=== PATIENT | male | born 1950 | race Caucasian/White ===

== ENCOUNTER 2018-02-08 15:23 | Emergency (ER) | payer OTHER, MEDICAID ==
[2018-02-08 15:42] VITALS: RESP 18
--- NOTE | 2018-02-08 17:13 | EDPHY ---
H & P Time Seen by Provider: 02/08/18 15:55 HPI/ROS: CHIEF COMPLAINT: Laceration right thumb HISTORY OF PRESENT ILLNESS: 67-year-old male presents to the emergency department laceration to the right thumb. Patient was at home and cut his thumb on a floor grinder. The incident happened just prior to arrival. He is right- hand dominant. He believes his tetanus shot is current. ROS: Denies numbness or tingling in his fingers, retained foreign body, injury to the other fingers. Past Medical/Surgical History: COPD, hepatitis-C, alcoholism Social History: Single and lives in [place] Smoking Status: Former smoker Physical Exam: On examination the patient has a 1.5 cm laceration to the distal, palmar aspect of the right thumb. The laceration does not extend to the nail or into the D IP joint. The other fingers do not appear injured. No palpable bony tenderness. Normal sensation to light touch. Full range of motion of his right thumb. Constitutional: Initial Vital Signs Temperature (C) 36.5 C 02/08/18 15:39 Heart Rate 101 H 02/08/18 15:39 Respiratory Rate 18 02/08/18 15:39 Blood Pressure 167/90 H 02/08/18 15:39 O2 Sat (%) 94 02/08/18 15:39 O2 Delivery Mode Room Air Allergies/Adverse Reactions: No Known Allergies Allergy (Verified 05/21/16 12:43) Home Medications: Medication Instructions Recorded Sodium Chloride [Saline Nasal Mist] 126 ml EACHNARE PRN PRN 05/21/16 Triamcinolone Acetonide [Nasacort] 10.8 ml EACHNARE PRN PRN 05/21/16 Aspirin 81 mg PO DAILY #30 tablet 05/24/16 Furosemide [Lasix 40 MG (*)] 40 mg PO DAILY #30 tab 05/24/16 Lisinopril 2.5 mg PO DAILY #30 tablet 05/24/16 Metoprolol Succinate Xr [Toprol Xl 25 mg PO DAILY #30 tab.sr 05/24/16 25 mg (*)] Potassium Chloride [Klor-Con 10] 10 meq PO DAILY #30 tablet.sa 05/24/16 MDM/Departure - MDM Procedures: Laceration repair. Verbal consent was obtained from the patient. The 1.5 cm laceration on the right thumb was anesthetized using digital block using 1% lidocaine without epinephrine 0.5% bupivacaine without epinephrine. The wound was irrigated with saline, draped and explored to its base with a gloved finger. There were no deep structures involved. No tendon injury was identified. The wound was repaired with 4 0 Ethilon, 3 sutures. The wound repair was simple. The procedure was performed by myself. ED Course/Re-evaluation: 67-year-old male presents with right thumb laceration. The wound was repaired, see procedure note. Patient was given wound care precautions. His tetanus shot is current. - Depart Disposition: Home, Routine, Self-Care Clinical Impression: Laceration of right thumb Qualifiers: Encounter type: initial encounter Damage to nail status: without damage Foreign body presence: without foreign body Qualified Code(s): S61.011A - Laceration without foreign body of right thumb without damage to nail, initial encounter Condition: Good Instructions: Laceration (ED), Acute Wounds (ED) Additional Instructions: Wound Care Follow-Up: Removal of sutures in 10 days. Suture removal is complimentary in uncomplicated cases. Infection or abnormal findings would require reevaluation by the MD. In that case, you may be billed. Return if he notices any signs or symptoms of infection such as redness, swelling, increased pain, fever, purulent drainage. Referrals: Pauly Giordano DO [Primary Care Provider] - As per Instructions
[2018-02-08 17:39] VITALS: BP 159/98; PULSE 89; TEMP 98.4; O2SAT 97
== END 2018-02-08 17:45 | disposition home or self-care (01) ==
PROC: 0HQFXZZ Repair Right Hand Skin, External Approach (ICD-10-PCS; principal; 2018-02-08)
DX: S61.011A Laceration without foreign body of right thumb without damage to nail, initial encounter (principal); J44.9 Chronic obstructive pulmonary disease, unspecified; Z79.82 Long term (current) use of aspirin; Z87.891 Personal history of nicotine dependence; X15.8XXA Contact with other hot household appliances, initial encounter; Y92.009 Unspecified place in unspecified non-institutional (private) residence as the place of occurrence of the external cause

== ENCOUNTER 2018-11-18 16:22 | Emergency (ER) | payer OTHER, MEDICAID ==
[2018-11-18] MEDS ORDERED: ADENOSINE 6 MG/2 ML VIAL ONE ×2 (16:40→16:45)
[2018-11-18] MEDS ORDERED: PROPOFOL 200 MG/20 ML VIAL ONE (16:48)
--- NOTE | 2018-11-18 16:48 | EDPHY ---
H & P Time Seen by Provider: 11/18/18 16:40 HPI/ROS: CHIEF COMPLAINT: Palpitations HISTORY OF PRESENT ILLNESS: The patient is a 68-year-old man with history of COPD and CHF as well as hepatitis-C and alcohol abuse. He has been on a steroid taper for the last 2 weeks for COPD exacerbation. He states that his breathing has improved significantly however he has had increased edema in his legs. He denies chest tightness, pain or shortness of breath. He states that today his nose runny to so he took several squirts of Afrin nasal spray. Soon after that he developed palpitations. This is around 1:00 p.m.. He is in SVT at triage. He denies any history of cardiac arrhythmias. Severity: Moderate Modifying factors: None REVIEW OF SYSTEMS: Constitutional: denies: chills, fever, recent illness, recent injury EENTM: denies: blurred vision, double vision, nose congestion Respiratory: denies: cough, shortness of breath Cardiac: See HPI Gastrointestinal/Abdominal: denies: abdominal pain, diarrhea, nausea, vomiting, blood streaked stools Genitourinary: denies: dysuria, frequency, hematuria, pain Musculoskeletal: denies: joint pain, muscle pain Skin: denies: lesions, rash, jaundice, bruising Neurological: denies: headache, numbness, paresthesia, tingling, dizziness, weakness Hematologic/Lymphatic: denies: blood clots, easy bleeding, easy bruising Immunologic/allergic: denies: HIV/AIDS, transplant 10 systems reviewed and negative except as noted EXAM: GENERAL: Well-appearing, very talkative and in no acute distress. HEAD: Atraumatic, normocephalic. EYES: Pupils equal round and reactive to light, extraocular movements intact, sclera anicteric, conjunctiva are normal. ENT: TMs normal, nares patent, oropharynx clear without exudates. Moist mucous membranes. NECK: Normal range of motion, supple without lymphadenopathy or JVD. LUNGS: Breath sounds clear to auscultation bilaterally and equal. No wheezes rales or rhonchi. HEART: Tachycardic, Regular rate and rhythm without murmurs, rubs or gallops. ABDOMEN: Soft, nontender, normoactive bowel sounds. No guarding, no rebound. No masses appreciated. BACK: No CVA tenderness, no spinal tenderness, step-offs or deformities EXTREMITIES: Normal range of motion, 2+ pitting edema in lower extremities bilaterally. No clubbing or cyanosis. NEUROLOGICAL: Cranial nerves II through XII grossly intact. Normal speech, normal gait. 5/5 strength, normal movement in all extremities, normal sensation , normal reflexes PSYCH: Normal mood, normal affect. SKIN: Warm, dry, normal turgor, no visible rashes or lesions. Source: Patient Exam Limitations: No limitations - Personal History Tetanus Vaccine Date: 2014 - Medical/Surgical History Hx Asthma: No Hx Chronic Respiratory Disease: Yes Hx Diabetes: No Hx Cardiac Disease: No Hx Renal Disease: No Hx Cirrhosis: No Hx Alcoholism: Yes Hx HIV/AIDS: No Hx Splenectomy or Spleen Trauma: No Other PMH: copd, CHF, hepatitis C, ETOH history - Family History Significant Family History: No pertinent family hx - Social History Smoking Status: Former smoker Alcohol Use: Sober Drug Use: None Constitutional: Initial Vital Signs Heart Rate 181 H 11/18/18 16:54 Respiratory Rate 18 11/18/18 16:54 Blood Pressure 120/91 H 11/18/18 16:54 O2 Sat (%) 100 11/18/18 16:54 O2 Delivery Mode Nasal Cannula O2 (L/minute) 3 Allergies/Adverse Reactions: No Known Allergies Allergy (Verified 11/19/18 13:41) Home Medications: Medication Instructions Recorded Fluticasone Propionate [Flonase 1 spray EACHNARE DAILY PRN 11/18/18 Allergy Relief] Montelukast Sodium [Singulair 10 10 mg PO DAILY 11/18/18 mg (*)] Tamsulosin HCl [Flomax 0.4 MG (*)] 0.4 mg PO DAILY 11/18/18 Furosemide [Lasix 40 MG (*)] 60 mg PO DAILY 11/19/18 Losartan Potassium [Cozaar 25 mg 25 mg PO DAILY 11/19/18 (*)] predniSONE [Prednisone] 10 - 20 mg PO DAILY 11/19/18 Medical Decision Making - Diagnostics EKG Interpretation: An EKG obtained and was read and documented in trace view. Please see trace view for full reading and report. SVT rate of 176 A repeat EKG obtained and was read and documented in trace view. Please see trace view for full reading and report. Sinus rhythm with multiple PACs and PVCs, no acute ischemic changes A repeat EKG obtained and was read and documented in trace view. Please see trace view for full reading and report. Sinus rhythm, Imaging: Discussed imaging studies w/ call center support consultant Radiologist Procedures: Procedure: Procedural sedation. Indication: Cardioversion. A pre-sedation evaluation was completed on the patient just prior to the procedure. Patient is an appropriate candidate for procedural sedation with a normal 3-3-2 rule assessment and a Mallampati airway score of class to. The risks of the sedation were discussed including but not limited to dysrhythmia, need for airway intervention or general anesthesia, disability, ; and verbal consent obtained. A timeout was observed and patient's identity confirmed. The patient was sedated with propofol 60 mg. The patient was monitored with continuous pulse oximetry, capnography, and seismic observer. There were no complications and no significant hypoxemia. I remained at the bedside for the sedation. The total time I spent in the procedural sedation was 16 minutes. Procedure: Electrical cardioversion. The patient was electrically cardioverted for a intractable SVT. The patient was on a continuous aviation operations specialist, with airway equipment at the bedside. The patient was on continuous pulse oximetry. The cardioversion was attempted with 100 joules biphasic current. The cardioversion was successful. The patient tolerated the procedure well with no complications. The procedure was performed by myself. ED Course/Re-evaluation: The patient was 1st given adenosine at 6 than 12 than 18 mg doses. He did not respond. He is slightly hypoxic with good blood pressure. Decision was made to cardiovert with electricity. Patient was taken to room 1 and sedated with propofol cardioverted with 100 joules biphasic. He converted to sinus rhythm but continues to have multiple PVCs and PACs. I then gave him 10 mg of diltiazem. He is awake and recovered. Will continue to observe. Lab work being drawn. 5:50 p.m. the patient remains slightly tachycardic around 120. His blood pressure slightly low around 95 systolic. He states that he feels well. His BNP is elevated but his chest x-ray does not look significantly edematous. He does have edema in his ankles. I recommended admission for further treatment. Also he was difficult to cardiovert and required diltiazem. 6:00 p.m. Discussed the case with Dr. Sawyer who will admit. 6:40 p.m. the patient was evaluated by Dr. Sawyer. He is now refusing admission. He is borderline hypoxic and remains tachycardic and borderline hypotensive. We both spoke to him several times about being admitted he continues to refuse. He is signing out AMA for Dr. Sawyer. Differential Diagnosis: Partial list of the Differential diagnosis considered include but were not limited to; CHF exacerbation, SVT, atrial flutter, medication reaction and although unlikely based on the history and physical exam, I also considered acute coronary disease, PE, dissection. - Data Points Laboratory Results: Laboratory Results 11/18/18 16:37 11/18/18 16:37 Medications Given: Discontinued Medications Diltiazem HCl (Cardizem 25 Mg/5 Ml Vial) 10 mg IVP EDNOW ONE Stop: 11/18/18 17:00 Last Admin: 11/18/18 17:00 Dose: 10 mg Propofol (Diprivan) 60 mg IVP EDNOW ONE Stop: 11/18/18 17:00 Last Admin: 11/18/18 16:55 Dose: 60 mg Departure - Departure Disposition: Against Medical Advice Clinical Impression: SVT (supraventricular tachycardia), Edema of both lower extremities Hypotension Qualifiers: Hypotension type: unspecified hypotension type Qualified Code(s): I95.9 - Hypotension, unspecified Condition: Fair Referrals: Pauly Giordano DO [Primary Care Provider] - As per Instructions
[2018-11-18] MEDS ORDERED: PROPOFOL 200 MG/20 ML VIAL IVP ONE (16:59)
[2018-11-18] MEDS ORDERED: DILTIAZEM 25 MG/5 ML VIAL IVP ONE ×2 (16:59)
[2018-11-18 17:09] LABS: PLATELET COUNT 283 10^3/uL (150-400)
--- NOTE | 2018-11-18 17:10 | CPEKG ---
Test Reason : OPEN Blood Pressure : / mmHG Vent. Rate : 132 BPM Atrial Rate : 151 BPM P-R Int : 123 ms QRS Dur : 139 ms QT Int : 361 ms P-R-T Axes : 063 -30 088 degrees QTc Int : 535 ms Sinus tachycardia Multiform ventricular premature complexes Left bundle branch block Confirmed by Yuri Parson ([id number]) on 11/18/2018 5:09:24 PM Referred By: Confirmed By:Yuri Parson
--- NOTE | 2018-11-18 17:16 | CPEKG ---
Test Reason : OPEN Blood Pressure : / mmHG Vent. Rate : 176 BPM Atrial Rate : 175 BPM P-R Int : 032 ms QRS Dur : 090 ms QT Int : 327 ms P-R-T Axes : 000 -48 -65 degrees QTc Int : 560 ms Supraventricular tachycardia LAD, consider left anterior fascicular block Repolarization abnormality, prob rate related Confirmed by Yuri Parson ([id number]) on 11/18/2018 5:16:05 PM Referred By: Confirmed By:Yuri Parson
[2018-11-18 17:19] LABS: INR 1.02 (0.83-1.16); PROTIME(PATIENT) 13.6 SEC (12.0-15.0)
[2018-11-18] MEDS ORDERED: ONDANSETRON DISINTEGRATING 4 MG TAB PO PRN (18:07)
[2018-11-18] MEDS ORDERED: ONDANSETRON 4 MG/2 ML VIAL IVP PRN (18:07)
[2018-11-18] MEDS ORDERED: ACETAMINOPHEN 325 MG TAB PO PRN (18:07)
[2018-11-18 18:59] VITALS: BP 128/79
--- NOTE | 2018-11-18 19:22 | GHP ---
DATE OF ADMISSION: 11/18/2018 CHIEF COMPLAINT: Palpitations, SVT. PRIMARY SPRAY BOOTH OPERATOR: Dr. Akbar. HISTORY OF PRESENT ILLNESS: A 68-year-old male with COPD, prior systolic heart failure, presenting with palpitations. He has a monitor at home and says his heart rates were in the 170s. He has been suffering from upper respiratory symptoms, specifically runny nose, thus taking Flonase and multiple doses of Afrin today. He saw his supervisor gluing on 11/14/2018, and his Lasix was increased to 60 mg with a plan for an echocardiogram. He says he has been urinating a lot more than he was previously. Denies chest pain, shortness of breath, or dizziness. He is currently on a prednisone taper by his extension service specialist in charge, Dr. Guaman, now on 10 mg daily. He has been on prednisone for 2 weeks. He has noted increased swelling in his legs for the past 2 weeks, which he attributes to prednisone. In the ER, EKG demonstrated SVT, was dosed adenosine x3 and converted to normal sinus rhythm. During my interview, he remains tachycardic in the one-teens, stating he does not want to stay in the hospital. REVIEW OF SYSTEMS: I completed a 10-point review of systems, negative, except as noted in HPI. PAST MEDICAL HISTORY: 1. Prior systolic heart failure with EF of 10. Last echo, March 2017, with EF of 50%. Diastolic dysfunction. Mild MR. Cardiac cath, 05/26, mild CAD. 2. COPD. PAST SURGICAL HISTORY: Left foot surgery. SOCIAL HISTORY: Lives in [place]. 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 Smoked 20 years, half pack a day. Was a heavy drinker, quit a year and a half ago. Denies illicits. FAMILY HISTORY: Mother, healthy. Father with mesothelioma. MEDICATIONS: Singulair, prednisone 10 mg daily, Flomax, Kait, Flonase, Afrin , Lasix 60 mg daily. Was supposed to start losartan 25 mg daily, but was not filled. Aspirin 81 mg daily. NKDA PHYSICAL EXAMINATION: VITAL SIGNS: Temperature 36.5. Blood pressure is 120/91 , now 96 over 60s. Heart rate initially 180s, now one-teens after adenosine. Respiration rate 18, 93% on 3 L. GENERAL: He is disheveled, very anxious, restless in bed. HEENT: PERRLA. Mildly dry mucous membranes. CV: Tachy, regular, with occasional extra beat. +2 edema to the shins, right greater than left. Elevated JVD. LUNGS: Diminished breath sounds throughout, but no crackles or wheezes. ABDOMEN: Mildly distended, soft, nontender, nondistended. Positive bowel sounds. : No Amor. MUSCULOSKELETAL: 5/5 upper/lower extremity strength. SKIN: Erythematous rash with scabbed over lesions over dorsum of the bilateral feet. No cellulitic features. NEURO: 2 through 12 intact. PSYCH: Alert and oriented x3. Very pressured speech. Difficult to keep on point when questioning. LABS: WBC 12, hemoglobin 15, hematocrit 50, platelets 283. Coags within normal. Sodium 137, potassium 4.2, chloride 100, BUN 26, creatinine 1.3 ( baseline 1-1.2), glucose 163, calcium 8.7, total bilirubin 1.3, conjugated 0.5. BNP is 16,100 (last 618April 2017). Albumin is 4. Chest x-ray, hyperinflated. No overt effusion. EKG personally reviewed by me, SVT, heart rate in the 170s. Repeat at 1800, tachy, PVCs. ASSESSMENT/PLAN: 1. Supraventricular tachycardia: Suspect triggered with excessive Afrin use today. He was dosed adenosine 3 times with conversion to normal rhythm, in addition to diltiazem x1. He is still mildly tachycardic. Plan to monitor on telemetry. 2. Diastolic heart failure exacerbation: Previous history of ejection fraction of 10%. Last echo was 50% in March 2017. He saw Dr. Akbar, 11/14/2018, with a plan for repeat echocardiogram. At that time, Lasix was increased to 60 mg daily, and losartan was started. I recommend patient stay for echocardiogram , but he declined. 3. Chronic obstructive pulmonary disease. No evidence of exacerbation. He was advised not to use Afrin. DISPOSITION: Patient left against medical advice. I explained the risks, including arrhythmia, passing out, syncope, NIURKA, . He acknowledged these. /[id number]/MODL MTDD
[2018-11-19] MEDS ORDERED: ENOXAPARIN 40 MG/0.4 ML SYR SC SCH (09:00)
--- NOTE | 2018-11-21 10:01 | CPEKG ---
Test Reason : OPEN Blood Pressure : / mmHG Vent. Rate : 175 BPM Atrial Rate : 174 BPM P-R Int : 115 ms QRS Dur : 134 ms QT Int : 330 ms P-R-T Axes : -83 050 092 degrees QTc Int : 563 ms Probably sinus tachycardia Nonspecific intraventricular conduction delay Confirmed by Leroy Akbar ([id number]) on 11/21/2018 10:01:07 AM Referred By: Confirmed By:Leroy Akbar
--- NOTE | 2018-11-22 06:13 | CPEKG ---
Test Reason : OPEN Blood Pressure : / mmHG Vent. Rate : 116 BPM Atrial Rate : 115 BPM P-R Int : 133 ms QRS Dur : 092 ms QT Int : 329 ms P-R-T Axes : 082 -12 072 degrees QTc Int : 458 ms Sinus arrhythmia Multiform ventricular premature complexes Anteroseptal infarct, old Nonspecific T abnormalities, lateral leads Confirmed by Yuri Parson ([id number]) on 11/22/2018 6:13:05 AM Referred By: Confirmed By:Yuri Parson
== END 2018-11-18 18:57 | disposition left against medical advice (07) ==
LOC: UNDOADMOB 18:06
PROC: 5A2204Z Restoration of Cardiac Rhythm, Single (ICD-10-PCS; principal; 2018-11-18)
DX: I47.1 Supraventricular tachycardia (principal); I95.9 Hypotension, unspecified; J44.9 Chronic obstructive pulmonary disease, unspecified; I50.9 Heart failure, unspecified; R60.0 Localized edema
CPT/HCPCS: 71045; 92960; 93005; 96374; 96375; 99285; J0153; J2704; J1650

== ENCOUNTER 2018-11-19 13:39 | Inpatient (IN) | payer OTHER, MEDICAID ==
[2018-11-19] MEDS ORDERED: DILTIAZEM 125 MG in D5W 125 ML IV ONE (13:59)
[2018-11-19] MEDS ORDERED: DILTIAZEM 25 MG/5 ML VIAL IVP ONE ×2 (13:59→17:15)
[2018-11-19 14:02] LABS: PLATELET COUNT 260 10^3/uL (150-400)
[2018-11-19 14:10] LABS: INR 1.1 (0.83-1.16); PROTIME(PATIENT) 14.4 SEC (12.0-15.0)
[2018-11-19] MEDS ORDERED: FUROSEMIDE 40 MG/4 ML VIAL IVP ONE (14:11)
--- NOTE | 2018-11-19 14:30 | EDPHY ---
H & P Time Seen by Provider: 11/19/18 13:40 HPI/ROS: Chief complaint. Shortness of breath, palpitations HPI. 68-year-old male here by EMS with several day history of increasing shortness of breath and palpitations. Seen in the emergency department yesterday and the initial rhythm diagnosis was SVT. He was treated with 6, 12, 18 mg adenosine without effect. He was cardioverted with 100 joules and residual heart rate was about 120-130. Arrangements were made for admission and the patient signed out AMA. He returns today via ambulance with worsening symptoms. He has a history of COPD and CHF. He has had a recent steroid taper for COPD exacerbation. He has recently had increased Lasix for leg edema and shortness of breath for the past several weeks. He really does not have any chest discomfort today. ROS 10 systems were reviewed and negative with the exception of the elements mentioned in the history of present illness Past Medical/Surgical History: COPD, CHF, hepatitis C, alcoholism Social History: Single, nonsmoker, no alcohol Smoking Status: Former smoker Physical Exam: General Appearance: Alert well-developed male moderate to severe distress. Vital signs significant for afebrile. Heart rate 176. 88% sat on room air. Blood pressure 122/101 Eyes: Pupils equal and round no pallor or injection. ENT, Mouth: Mucous membranes are moist. Respiratory: Decreased breath sounds. Rales are present some wheezing present Cardiovascular: Regular rate and rhythm with tachycardia Gastrointestinal: Abdomen is distended likely secondary to ascites. No masses. Normal bowel sounds Neurological: Awake and alert, sensory and motor exams grossly normal. Skin: Warm and dry, no rashes. Musculoskeletal: Neck is supple nontender. Extremities 3+ edema to legs Psychiatric: Patient is oriented X 3, there is no agitation. Constitutional: Initial Vital Signs Temperature (C) 36.8 C 11/19/18 13:41 Heart Rate 176 H 11/19/18 13:41 Respiratory Rate 24 H 11/19/18 13:41 Blood Pressure 122/101 H 11/19/18 13:41 O2 Sat (%) 88 L 11/19/18 13:41 O2 Delivery Mode Nasal Cannula O2 (L/minute) 2 Allergies/Adverse Reactions: No Known Allergies Allergy (Verified 11/19/18 13:41) Home Medications: Medication Instructions Recorded Fluticasone Propionate [Flonase 1 spray EACHNARE DAILY PRN 11/18/18 Allergy Relief] Montelukast Sodium [Singulair 10 10 mg PO DAILY 11/18/18 mg (*)] Tamsulosin HCl [Flomax 0.4 MG (*)] 0.4 mg PO DAILY 11/18/18 Furosemide [Lasix 40 MG (*)] 60 mg PO DAILY 11/19/18 Losartan Potassium [Cozaar 25 mg 25 mg PO DAILY 11/19/18 (*)] predniSONE [Prednisone] 10 - 20 mg PO DAILY 11/19/18 Medical Decision Making - Diagnostics EKG Interpretation: EKG interpreted by shows atrial fib flutter the with normal axis. QRS is somewhat wide with QRS T1 48. No significant ST elevation or depression. Heart rate is 176 Imaging Results: Chest x-ray interpreted by me shows COPD, mild cardiomegaly, CHF Procedures: Old chart from yesterday is reviewed by me IV normal saline, oxygen, monitor Diltiazem bolus Lasix IV ED Course/Re-evaluation: I consulted discussed case with Dr. Smith for cardiology comes to see the patient in the emergency department. Dr. Castro david recommends no further diltiazem at this point but instead the using Lasix and amiodarone. Dr. Smith will write the order for amiodarone. Echocardiogram is ordered. Consulted discussed the case with Dr. Adams, hospitalist who will see the patient in the ED Patient and I have discussed laboratory and imaging study results. We discussed treatment plan including recommendation for admission. He expresses understanding and agreement Differential Diagnosis: Elevated troponin. Significantly elevated BNP. Likely very low ejection fraction. Cardiology feels the patient needs the fast heart rate currently to maintain cardiac output and recommends no significant cardiac to pressors at this point. no evidence for pneumonia Critical Care Time: Critical care time exclusive procedures 40 min - Data Points Laboratory Results: Laboratory Results 11/19/18 13:50 11/19/18 13:50 Medications Given: Discontinued Medications Albuterol/Ipratropium (Duoneb) 3 ml IH Q6HRS PRN PRN Reason: Short of Breath/Dyspnea Stop: 05/18/19 15:00 Last Admin: 11/19/18 15:06 Dose: 3 ml Diltiazem HCl (Cardizem 25 Mg/5 Ml Vial) 20 mg IVP EDNOW ONE Stop: 11/19/18 14:00 Last Admin: 11/19/18 14:04 Dose: 20 mg Diltiazem HCl (Cardizem 25 Mg/5 Ml Vial) 10 mg IVP ONCE ONE Stop: 11/19/18 17:16 Last Admin: 11/19/18 17:53 Dose: 10 mg Enoxaparin Sodium (Lovenox) 40 mg SC DAILY [facility] Stop: 05/18/19 17:44 Last Admin: 11/19/18 20:07 Dose: Not Given Famotidine (Pepcid) 20 mg PO BID ARAM Stop: 05/18/19 20:59 Last Admin: 11/19/18 21:14 Dose: Not Given Furosemide (Lasix Injection) 40 mg IVP EDNOW ONE Stop: 11/19/18 14:12 Last Admin: 11/19/18 14:14 Dose: 40 mg Furosemide (Lasix Injection) 60 mg IVP Q6HRS [facility] Stop: 05/18/19 17:59 Last Admin: 11/19/18 17:54 Dose: 60 mg Diltiazem HCl 125 mg/ Dextrose 125 mls @ 0 mls/hr IV EDNOW ONE; As Directed PRN Reason: Protocol Stop: 11/19/18 14:00 Last Admin: 11/19/18 14:11 Dose: Not Given Amiodarone HCl (Amiodarone Hcl) 100 mls @ 600 mls/hr IV ONCE ONE Stop: 11/19/18 14:44 Last Admin: 11/19/18 15:19 Dose: 100 mls Amiodarone HCl (Amiodarone Hcl) 200 mls @ 0 mls/hr IV EDNOW ONE; As Directed PRN Reason: Protocol Stop: 11/19/18 14:36 Last Admin: 11/19/18 15:30 Dose: 200 mls Azithromycin 500 mg/ Sodium (Chloride) 255 mls @ 255 mls/hr IV DAILY ARAM PRN Reason: Protocol Stop: 12/19/18 17:29 Last Admin: 11/19/18 17:48 Dose: 255 mls Epinephrine HCl 1 mg/ Dextrose 251 mls @ 0 mls/hr IV CONT ARAM; Per Protocol PRN Reason: Protocol Stop: 11/19/18 22:00 Last Admin: 11/19/18 20:51 Dose: 251 mls Epinephrine HCl 8 mg/ Sodium (Chloride) 258 mls @ 0 mls/hr IV CONT ARAM; Per Protocol PRN Reason: Protocol Stop: 05/18/19 21:29 Last Admin: 11/19/18 22:00 Dose: 258 mls Ipratropium [place] (Atrovent Neb) 0.5 mg IH Q6HRS [facility] Stop: 05/18/19 17:59 Last Admin: 11/19/18 20:07 Dose: Not Given Levalbuterol (Xopenex 0.63mg Neb) 1.25 mg IH Q6HRS [facility] Stop: 05/18/19 17:59 Last Admin: 11/19/18 20:07 Dose: Not Given Lorazepam (Ativan Injection) 1 mg IVP ONCE ONE Stop: 11/19/18 15:05 Last Admin: 11/19/18 15:05 Dose: 1 mg Lorazepam (Ativan Injection) 1 mg IVP ONCE ONE Stop: 11/19/18 18:16 Last Admin: 11/19/18 19:41 Dose: 1 mg Methylprednisolone Sodium Succinate (Solu-Medrol) 125 mg IVP Q8H [facility] Stop: 05/18/19 15:14 Last Admin: 11/19/18 15:13 Dose: 125 mg Methylprednisolone Sodium Succinate (Solu-Medrol) 125 mg IVP Q6H [facility] Stop: 05/18/19 20:59 Last Admin: 11/19/18 21:28 Dose: 125 mg Metolazone (Zaroxolyn) 2.5 mg PO DAILY [facility] Stop: 05/18/19 14:44 Last Admin: 11/19/18 16:32 Dose: 2.5 mg Metoprolol Tartrate (Lopressor Injection) 5 mg IVP ONCE ONE Stop: 11/19/18 17:03 Last Admin: 11/19/18 17:13 Dose: 5 mg Morphine Sulfate (Morphine) 1 mg IVP ONCE ONE Stop: 11/19/18 18:16 Last Admin: 11/19/18 17:55 Dose: 1 mg Point of Care Test Results: Chemistry 11/19/18 13:50 POC Troponin I 0.11 ng/mL H ng/mL (0.00-0.08) Departure - Departure Disposition: [facility] Clinical Impression: Edema of both lower extremities Atrial fibrillation Qualifiers: Atrial fibrillation type: unspecified Qualified Code(s): I48.91 - Unspecified atrial fibrillation Congestive heart failure Qualifiers: Heart failure type: unspecified Heart failure chronicity: unspecified Qualified Code(s): I50.9 - Heart failure, unspecified Ascites Qualifiers: Ascites type: other type Qualified Code(s): R18.8 - Other ascites Condition: Critical
[2018-11-19] MEDS ORDERED: AMIODARONE HCL 200 ML IV ONE (14:35)
[2018-11-19] MEDS ORDERED: AMIODARONE HCL 100 ML IV ONE (14:35)
[2018-11-19] MEDS ORDERED: METOLAZONE 2.5 MG TAB PO SCH (14:45)
[2018-11-19] MEDS ORDERED: IPRATROPIUM/ALBUTEROL 3 ML DEYVIAL ONE (14:57)
[2018-11-19] MEDS ORDERED: LORazepam 2 MG/ML INJ ONE ×2 (14:57→17:48)
[2018-11-19] MEDS ORDERED: IPRATROPIUM/ALBUTEROL 3 ML DEYVIAL IH PRN (15:01)
[2018-11-19] MEDS ORDERED: LORazepam 2 MG/ML INJ IVP ONE ×2 (15:04→18:15)
[2018-11-19] MEDS ORDERED: methylPREDNISolone SOD SUCC 125 MG/2 ML VIAL ONE (15:10)
[2018-11-19] MEDS ORDERED: methylPREDNISolone SOD SUCC 125 MG/2 ML VIAL IVP SCH ×2 (15:15→21:00)
[2018-11-19] MEDS ORDERED: ACETAMINOPHEN 325 MG TAB PO PRN (15:15)
[2018-11-19] MEDS ORDERED: AMIODARONE HCL 150 MG/100 ML BAG (1.5 MG/ML) IV ONE (15:18)
--- NOTE | 2018-11-19 15:55 | ECHO ---
[email or web address] [address] [address] Main: [phone] Fax: Transthoracic Echocardiogram Name: LEONARDO RIVERA MR#: [id number] Study Date: 11/19/2018 Study Time: 02:25 PM Date of : 1950 Age: 68 year(s) Height: 182.9 cm (72 in.) Weight: 86.18 kg (190 lb.) BSA: 2.08 m2 Gender: Male Examination: Echo Indication: Chest Pain Image Quality: Adequate Contrast: Requested by: Bartolome Larose BP: 94 mmHg/64 mmHg Heart Rate: Rhythm: Indication: Chest Pain Procedure Staff [place]: Chinyere Kebede RDCS Reading Physician: Jeremy Smith MD Requesting Provider: Conclusions: No pericardial effusion. Severely reduced LV systolic function. Ejection fraction estimated at 12%. Borderline reduction in RV systolic function. Biatrial enlargement. Moderate mitral regurgitation. Moderate to severe tricuspid regurgitation with right ventricular systolic pressure of 46 mm of mercury. Measurements: Chambers Valvular Assessment AV/MV Valvular Assessment TV/PV Normal Normal Normal Name Value Range Name Value Range Name Value Range Ao Melissa (2D): 3.9 cm (1.4 cm-2.6 AV Vmax: 0.62 m/s (1 m/s-1.7 TR Vmax: 3.22 mm/s ( - ) cm) m/s) TR PGmax: 41 mmHg ( - ) IVSd (2D): 1.2 cm (0.6 cm-1.1 AV maxP mmHg ( - ) syst. PAP: 46 mmHg ( - ) cm) AV meanP mmHg ( - ) LVDd (2D): 7.4 cm (4.2 cm-5.9 LVOT Vmax: 0.49 m/s (0.7 m/s-1.1 cm) m/s) LVDs (2D): 6.9 cm (2.1 cm-4 TANESHA (Vmax): 3.3 cm2 ( - ) cm) TANESHA (VTI): 2.9 cm ( - ) LVPWd (2D): 1.1 cm (0.6 cm-1 MV E Vmax: 0.68 m/s ( - ) cm) MV PHT: 0.042 s ( - ) LVOTd 2.3 cm 2.3 cm mm MVA (PHT): 5.2 s ( - ) LVEF (BP): 12 % (>=55 %) RVDd(2D): 2.6 cm (1.9 cm-3.8 cmmm) Continued Measurements: Chambers Valvular Assessment AV/MV Valvular Assessment TV/PV Name Value Name Value Name Value LADs: 4.2 cm MV DecTime: 148 m/s CVP (est.): 5 mmHg LADs Lon.9 cm MR ERO: 0.420 cm2 Patient: LEONARDO RIVERA Study Date: 11/19/2018 Page 1 of 2 02:25 PM LA Area: 25.5 cm2 MR PISA radius: 8 mm LA Volume: 95 ml MR Reg. Volume: 32 ml LA Volume Index: 45.7 ml/m2 RA Area: 18.9 cm2 Findings: Left Ventricle: Dilated left ventricle. Severely reduced systolic LV function. EF is 12 %. Global severe hypokinesis. Right Ventricle: Normal size right ventricle. Borderline RV function. Left Atrium: The left atrium is moderately dilated. Right Atrium: The right atrium is mildly dilated. Mitral Valve: The mitral valve is normal in appearance and function. Moderate mitral valve regurgitation is present. No mitral stenosis is present. Aortic Valve: The aortic valve is tri-leaflet. No aortic valve stenosis is present. Trivial aortic valve regurgitation. Tricuspid Valve: The tricuspid valve is normal in appearance and function. Moderate to severe tricuspid valve regurgitation. The pulmonary artery pressure is moderately increased. Right ventricular systolic pressure measures 46mmHg. Pulmonic Valve: Pulmonary valve not well visualized. Aorta: The aorta is normal. Normal size aortic root measuring 3.9 cm. IVC: The IVC is normal sized. Pericardium: No pericardial effusion. (No Signature Object) Patient: LEONARDO RIVERA Study Date: 11/19/2018 Page 2 of 2 02:25 PM [id number]
--- NOTE | 2018-11-19 16:48 | PDGENHP ---
History and Physical History and Physical: PCP - at [facility]. Market Research Senior Project Manager - Dr. Guaman in [place]. Chief complaint: Shortness of breath History of present illness: The patient is a 68-year-old male with history of COPD, CHF who return to the hospital today with increasing shortness of breath, fatigue, and racing heart. He left the hospital AMA yesterday shortly after he was cardioverted for atrial flutter in the ED. Here, he was found to be in atrial flutter with a heart rate of 170. Over the last month, he has developed a productive cough which has progressively worsened. He has also developed edema which has slowly been worsening. In the outpatient setting, he was put on a steroid taper for COPD exacerbation and his Lasix was increased. Shortness of breath is worse when he lies down. He is unable to answer additional questions because of his shortness of breath. Past medical history: COPD/emphysema, systolic and diastolic CHF, alcoholism, hepatitis-C, anxiety. Past surgical history: Left foot surgery. Medications: Allergies: No known allergies. Social history: Former smoker. Ten pack-year history. Former alcoholic. Denies drug use. Single, . Family history: Father-mesothelioma. Review of systems: unable to obtain because pt is very dyspneic. Physical exam: Vitals: Reviewed General: The patient is a male who is alert and in moderate acute distress. HEENT: normocephalic, extraocular movements intact, conjunctivae clear, no lesions on face. Nares and oral mucosa pink and moist. Neck: trachea midline, no visible masses, no external lesions. CV: rapid rate, no MRG. Resp: Labored breathing, tripod posture. Lungs CTAB w/ mild wheezing bilaterally, reduced breath sounds throughout. Abd: soft and mildly distended. Musculoskeletal: Normal muscle tone and bulk. Neuro: cranial nerves II - XII grossly intact. Intact gross motor and sensory function. Psych: irritable mood/appropriate affect. Skin: no pallor. +cyanosis/clubbing of digits of UE/LE. Labs: WBC 10, hemoglobin 15, platelets 260, INR 1.1, sodium 134, potassium 4.2 chloride 97 CO2 28 BUN 30 creatinine 1.2 glucose 176. AST 129 ALT 145. ProBNP 97878. Troponin I 0.11. TSH 1.67. Other Data: Chest [id number]-[id number] emphysematous and CHF changes. +mild edema. No acute cardiopulmonary process. Personally interpreted. Echocardiogram-LVEF 12%. Dilated left ventricle, left atrium. Borderline reduced RV systolic function. Biatrial enlargement. Moderate MR. Moderate to severe TR. RVSP 46. Impression and plan: Acute hypoxemic respiratory failure COPD exacerbation, severe Pulm HTN -Discussed with Pulm/CC. Pt on Vapotherm now, goal SpO2 88-90%. -If resp function declines, get ABG and consider placing on BiPap or intubating. -SoluMedrol. -Check resp panel, sputum Cx AFlutter CHF exacerbation - systolic and diastolic R sided heart failure, 2/2 COPD -Cardiology consulted in ED - put pt on Amiodarone for rate control. -Strict I/O, sodium restriction, Lasix. Electrolyte protocol. History of alcoholism -Pt denies drinking alcohol recently. Check ethanol level. -May start CIWA protocol if he develops EtOH withdrawal -Ativan prn agitation/anxiety. Hepatitis C Transaminitis -May have some congestive hepatopathy from R heart failure. -Continue to monitor. VTE ppx - Lovenox. Code status - full. Pt wants to be resuscitated and is ok with intubation/vent.
[2018-11-19] MEDS ORDERED: METOPROLOL TARTRATE 5 MG/5 ML INJ IVP ONE (17:02)
[2018-11-19] MEDS ORDERED: METOPROLOL TARTRATE 5 MG/5 ML INJ ONE (17:04)
[2018-11-19] MEDS ORDERED: DILTIAZEM 125 MG in D5W 125 ML IV SCH (17:15)
[2018-11-19] MEDS ORDERED: AZITHROMYCIN IV 500 MG in NS 250 ML IV SCH (17:30)
[2018-11-19] MEDS ORDERED: PROTOCOL K PHOSPHATE 1 DOSE IV PRN (17:38)
[2018-11-19] MEDS ORDERED: PROTOCOL MAGNESIUM 1 DOSE IV PRN (17:38)
[2018-11-19] MEDS ORDERED: PROTOCOL CALCIUM 1 DOSE IV PRN (17:38)
[2018-11-19] MEDS ORDERED: PROTOCOL POTASSIUM 1 DOSE MISC PRN (17:38)
[2018-11-19] MEDS ORDERED: ENOXAPARIN 40 MG/0.4 ML SYR SC SCH (17:45)
[2018-11-19] MEDS ORDERED: LORazepam 2 MG/ML INJ IVP PRN (17:47)
[2018-11-19] MEDS ORDERED: LEVALBUTEROL INHALER 200 PUFFS/15 GM MDI IH SCH (18:00)
[2018-11-19] MEDS ORDERED: LEVALBUTEROL 0.63 MG/3 ML DEYVIAL IH SCH ×2 (18:00)
[2018-11-19] MEDS ORDERED: IPRATROPIUM BROMIDE 0.5 MG/2.5 ML DEYVIAL IH SCH (18:00)
[2018-11-19] MEDS ORDERED: FUROSEMIDE 100 MG/10 ML VIAL IVP SCH (18:00)
[2018-11-19] MEDS ORDERED: DEXMEDETOMIDINE HCL 400 MCG in NS 100 ML IV SCH (18:30)
[2018-11-19] MEDS ORDERED: NA BICARBONATE 50 MEQ/50 ML VIAL ONE (18:54)
--- NOTE | 2018-11-19 19:00 | GCON ---
CARDIOLOGY CONSULTATION. DATE OF CONSULTATION: 11/19/2018 TIME: 2:30. REASON FOR CONSULTATION: Shortness of breath. HISTORY OF PRESENT ILLNESS: The patient is a 68-year-old male. He has known history of a dilated ca rdiomyopathy. At 1 point, his ejection fraction was 10%. He recovered to an EF of 50% and has not b een assessed in some time. He was seen on November 14 in our office. At that time, he had what was ap parently acute on chronic decompensation. His diuretics were increased. He has underlying COPD. He has been seen by technical support associate and given a steroid taper. He was seen yesterday in the emergency de partment with an SVT and decompensation. He was attempted to be rate controlled and then ultimately shocked into a sinus rhythm. He left against medical advice and returns today. On my arrival he can barely get a sentence out. He complains of significant shortness of breath, wheezing and cough. He denies palpitations, chest pain. He has had no PND, but has had significant peripheral edema. Prio r workup included a normal cardiac catheterization in 2016. At that time ejection fraction was 10% w ith mild CAD. Risks included alcohol which he has stopped. Underlying medical issues complicated by hepatitis C and longstanding alcohol abuse. He also has a history of "noncompliance." Other medical problems include hepatitis C. MEDICATIONS: As an outpatient included Flomax. He was on 60 mg twice daily of Lasix. He is on 10 m g of prednisone as part of a taper. He had self stopped his beta neelam. ALLERGIES: Dust. FAMILY HISTORY: Negative for premature coronary disease. SOCIAL HISTORY: Alcohol, which was previously heavy until 2016. No significant tobacco abuse. REVIEW OF SYSTEMS: GENERAL: Significant for fatigue, malaise, and weight gain. HEENT is negative for lightheadedness. CARDIAC: Exam includes severe dyspnea on exertion, lower extremity swelling. He has no palpitations, chest pain, or syncope. RESPIRATORY: Notable for shortness of breath, wheezing and cough. GI: Significant for distention without melena. MUSCULOSKELETAL: Reviewed. Negative for pain or swelling. He has no bleeding or bruising. PHYSICAL EXAMINATION: VITAL SIGNS: On my arrival, this is a very ill-appearing male. His current he art rate is 180. Blood pressure was 100/81. Oxygen saturation on 2 L was 94%. HEENT: No prominent JVP. CHEST: Significantly decreased breath sounds with expiratory and inspiratory wheezing. CARDIA C: Exam is significant for tachycardia. ABDOMEN: Significantly distended and tympanitic. I could no t appreciate a fluid wave. EXTREMITIES: 3+ edema to the knee. There is peripheral cyanosis. He is alert and oriented, responding appropriately. LABORATORY DATA: Significant for white count of 9.9. His hemoglobin is 15 with a hematocrit of 47. His current platelet count is 260,000. His serum sodium is 134, potassium 4.2, his chloride is 97, BUN is 30 with a creatinine 1.2. His AST is 129 with an ALT of 145. His initial troponin is 0.11. Glucose is 176. His EKG shows atrial flutter with a rapid ventricular response. Chest x-ray shows borderline cardiac size with no acute infiltrate. CONCLUSIONS: Acute respiratory failure, likely due to combination of chronic obstructive pulmonary d isease and acute systolic heart failure. His ejection fraction has been as low as 10% and has not be en reassessed. In the short term, recommend aggressive diuresis as he is clearly volume overloaded. We will plan for a stat echocardiogram for assessment of LV function. He was cardioverted yesterday which did not sustain him. Would like to use an antiarrhythmic drug, which has negative inotrope. We will plan for amiodarone 150 mg load with a slow drip. Close clinical followup of his liver funct ion tests in the setting of this medication. He will likely need afterload reduction as well as beta blockade. He clearly will need aggressive rate control and/rhythm strategy. At the present time he is critically ill. I would recommend that he be admitted to the intensive care unit. He needs aggr essive pulmonary toilet including potential steroid bolus, aggressive nebulizer therapy and potential ly respiratory support. Would consider blood gas to determine whether or not he is retaining CO2. Corry hardy will follow him along closely in the ICU. Thank you for allowing us to participate in his care. He has been under the care of our heart failur e service and will notify them of his admission. /[id number]/MODL
--- NOTE | 2018-11-19 19:05 | GCON ---
PULMONARY CRITICAL CARE CONSULTATION DATE OF CONSULTATION: 11/19/2018 REASON FOR CONSULTATION: COPD exacerbation, congestive heart failure. HISTORY: The patient is a 68-year-old gentleman with a history of COPD secondary to previous tobacco abuse and severe congestive heart failure. Cardiac echo shows an estimated left ventricular ejection fraction of 12%. Right ventricular systolic pressures were significantly elevated at 48. He was in the emergency department yesterday with SVT. He required cardioversion. He was scheduled to be admitted but signed out against medical advice. He came back today with increasing shortness of breath, hypoxemia, and lower extremity edema. Chest x-ray is consistent with COPD/emphysema. There are no acute infiltrates. He is complaining of cough and shortness of breath, but is unable to bring up any sputum. Heart rate in the emergency department is significantly elevated at approximately 175. He was seen by Cardiology and started on amiodarone. Blood pressures have been stable. He was given Lasix. He has urinated once for an unknown amount. DRUG ALLERGIES: No known drug allergies. PAST MEDICAL HISTORY: Remarkable for congestive heart failure associated with cardiomyopathy, pulmonary hypertension, secondary, cirrhosis with ascites, systemic hypertension, history of SVT and atrial fibrillation, history of previous tobacco abuse and alcohol abuse in the past. HOME MEDICATIONS: Prednisone which was being tapered, Lasix at 60 mg per day, Cozaar, Flomax, montelukast, and Flonase. Inhaled outpatient medications are not listed. SOCIAL HISTORY: He is , apparently lives alone. He drinks significant beer. He is no longer smoking, but is unclear when he quit tobacco. He does use marijuana. FAMILY HISTORY: Noncontributory. REVIEW OF SYSTEMS: Difficult to obtain at the moment secondary to dyspnea. He also has a history of hepatitis C. PHYSICAL EXAMINATION: GENERAL: Reveals a gentleman who is complaining of shortness of breath and appears to be in some respiratory distress. VITAL SIGNS : Blood pressure is 119/98, heart rate approximately 175 and regular, consistent with a supraventricular tachycardia. Respiratory rate is 25. On 6 L by OxyMask, saturations are 88%. He is afebrile. HEENT: Remarkable for dyspnea and use of accessory muscles, dry mucous membranes. He has a dry but somewhat centrally congested cough. CHEST: Reveals decreased breath sounds bilaterally with a prolonged expiratory phase with expiratory wheezes. No yamil rhonchi are present. There are no significant rales. HEART: Tachycardic. A summation gallop is likely present. ABDOMEN: Mildly distended , soft and not tender. Organomegaly cannot be appreciated. Bowel sounds are diminished but present. EXTREMITIES: Remarkable for 1+ edema. SKIN: Dry without significant rash or lesions. NEUROLOGIC: Examination is intact. He is restless secondary to his dyspnea and appropriately responsive. DATABASE: Chest x-ray is negative for infiltrates, consistent with COPD/ emphysema as noted above. White blood cell count is 9900, hematocrit 47, platelets 260,000. PT and PTT were normal on admission. Sodium is 134, potassium 4.2, BUN 30 with a creatinine of 1.2. Glucose is 176. Bilirubin is 0.8. AST and ALT are elevated at 129 and 145 respectively. BNP is 15,800. Troponin is 0.11. Magnesium is 2.2. Urinalysis is unremarkable. ASSESSMENT: 1. Chronic obstructive pulmonary disease exacerbation. This is likely associated with bronchitis, perhaps infectious. Bronchodilator therapy will be maintained with Xopenex and ipratropium bromide. Steroids will be given. Singulair can be continued. Azithromycin will be given intravenously. Oxygen will be used to maintain saturations approximately 88% to 92%. A blood gas will be done if he deteriorates or does not improve. 2. Cardiomyopathy with severe left ventricular congestive heart failure. Estimated ejection fraction is 12% on echo today. In addition, he has significant pulmonary hypertension with pressures estimated to be approximately 50. Over-diuresis needs to be avoided. However, initial Lasix diuresis is indicated. Respiratory distress may be due to his severe cardiomyopathy in the setting of supraventricular tachycardia with a rapid ventricular response. 3. Metabolic mild hyponatremia, efkt-ba-[id number] hyperglycemia. 4. Elevated liver function studies. These were normal yesterday. Etiology may be secondary to passive congestion of the liver? There is no evidence for an episode of significant hypotension at this time. 5. Supraventricular tachycardia with rapid ventricular response. Heart rate is quite high: 180. He has been seen by Cardiology and started on amiodarone. I will give him some metoprolol and repeat diltiazem as his heart rate of 180 seems unsustainable. Cardioversion can be again considered. 6. Acute respiratory failure: Secondary to chronic obstructive pulmonary disease exacerbation as above, as well as severe congestive heart failure. Plans as above. 7. Prophylaxis. Enoxaparin will be given along with Pepcid. PLAN AND RECOMMENDATIONS: Please see the problem specific plans as above. Bronchodilator therapy, steroids and antibiotics will be given. Heart rate will be slowed with a combination of amiodarone, metoprolol and diltiazem initially. Lasix diuresis will be initiated but over-diuresis needs to be avoided secondary to his severe pulmonary hypertension. Enoxaparin, Pepcid will be given. Laboratory will be followed. Further plans and recommendations will be made based on his progress over the next 12-24 hours. /[id number]/MODL MTDD
--- NOTE | 2018-11-19 19:41 | PDCODEBLUE ---
Code Blue Note The patient was extremely agitated and remain tachycardic with rates of approximately 160 - 180. He was on amiodarone, had received 5 mg of metoprolol an hour earlier her and 10 mg of diltiazem 30 min earlier. He had been placed on BiPAP support and given low doses of morphine and Ativan for comfort. He was being transferred to a room closer to the nurse's station secondary to his critical condition. He became bradycardic without discernible pulse. CPR was initiated. CPR was continued with chest compressions and administration of several doses of epinephrine, atropine, bicarbonate, and calcium. He was cardioverted x1 with 100 joules. Post cardioversion he appeared to be in sinus rhythm at approximately 120. He had return of spontaneous circulation with blood pressure and pulse. Blood pressure was initially approximately 120 systolic. He was intubated over the glide scope by myself in the middle of the code. CO2 production was documented. Saturations came up to the high 80s. He was placed on the ventilator. Initial blood gas showed a pH is 7.12, pCO2 of 56 and PO2 approximately 80. 2 amps of bicarb were given. Chest x-ray post intubation showed the endotracheal tube to be high. This was advanced 3 cm. Increased bilateral pulmonary infiltrates were present consistent with congestive heart failure/pulmonary edema. There was no evidence of pneumothorax. There was no evidence of aspiration at any point. Cardiac echo was repeated. The left heart shows a severe cardiomyopathy with poor wall motion and an ejection fraction of approximately 10%. Dr. Fisher was called in. He felt current care was appropriate. The patient is being placed on an epinephrine drip to maintain heart rate and blood pressure. He did not recommend cardiac augmentation. We felt that continued full code status was appropriate despite his very poor cardiac prognosis. No family was available to assist in advanced directives. I did talk to a friend and previous employer. The patient apparently does have a daughter. They are lasting contact about a year ago and are estranged. He did not have contact information for the daughter. 2 hr of critical care time was spent directly with the patient prior to the cor 0, during it and after. This included intubation, CPR, etc. Discussed at length with respiratory, nursing and Cardiology.
[2018-11-19] MEDS ORDERED: FAMOTIDINE 20 MG TAB PO SCH (21:00)
--- NOTE | 2018-11-19 21:20 | PDCARPN ---
Cardiology Progress Note Assessment/Plan: Assessment: 1. Nonischemic cardiomyopathy 2. Atrial flutter and fibrillation 3. Pulmonary hypertension 4. Post CPR ~30 min for PEA arrest 5. Hepatitis C 6. h.o. ETOH abuse 7. h.o. non compliance Plan: Stat bedside echo with LVEF ~10%. Currently on epinephrine drip. Acidotic. On amiodarone drip for AFIB and AFL. Start full dose Lovenox for anticoagulation. No family available to guide cor-0 status, will likely need ethics consult for guidance. Very poor prognosis - if survives this episode with neuro status intact, could consider AV node ablation. 11/19/18 21:25 Subjective: CTSP urgently by Dr. Jairon Champion due to code. Patient in PEA requiring CPR ~30 min. I saw patient immediately after. Patient unresponsive, on ventilator, on epinephrine and amiodarone drip Reviewed/Discussed With: hospitalist, multidisciplinary team Objective: Vital Signs (8 Hrs) Temp Pulse Resp BP Pulse Ox 11/19/18 18:52 108 H 100/59 L 11/19/18 17:13 180 H 118/98 H 11/19/18 17:00 173 H 25 H 118/98 H 99 11/19/18 16:12 178 H 25 H 94/74 L 87 L 11/19/18 15:55 36.4 C 178 H 24 H 94/74 L 88 L 11/19/18 15:33 176 H 22 H 109/76 96 11/19/18 14:45 180 H 106/81 H 11/19/18 14:29 182 H 24 H 87/74 L 96 Intake/Output (24 Hrs) 11/18/18 11/19/18 11/20/18 11:59 11:59 11:59 Intake Total 200 Output Total 155 Balance 45 Intake: IV Infused (ml) 200 Amiodarone HCl 200 ml @ 100 As Directed IV EDNOW ONE Rx#:[id number] Output: Urine (ml) 155 Catheter 5 Other: Number of Voids 1 Result Diagrams: 11/19/18 13:50 11/19/18 19:58 Cardiac Labs: Cardiac Lab Results (72 Hrs) 11/19/18 19:58 Troponin I 0.127 H Telemetry: AFL with RVR followed by AFL with slow rates. Currently in NSR ICD10 Worksheet Patient Problems: Problems Problem Status Onset Ascites Acute Cirrhosis Acute Acute systolic CHF (congestive heart failure) Acute Cardiomyopathy Acute Hypertension Acute SVT (supraventricular tachycardia) Acute Hypotension Acute Edema of both lower extremities Acute Atrial fibrillation Acute Congestive heart failure Acute
[2018-11-19] MEDS ORDERED: EPINEPHrine 8 MG in NS 250 ML IV SCH (21:30)
[2018-11-19] MEDS ORDERED: ENOXAPARIN 80 MG/0.8 ML SYR SC SCH (21:45)
[2018-11-19] MEDS ORDERED: EPINEPHrine 1 MG/10 ML SYR IVP ONE (22:31)
[2018-11-19 23:32] VITALS: BP 0/0
--- NOTE | 2018-11-20 00:44 | PDDCSUM ---
Discharge Summary Discharge Summary: Date of Admission: November 19 2018 Date of Expiration: November 19, 2017 Discharge Diagnoses: Cardiac Arrest Anoxic encephalopathy Acute respiratory failure, vent dependent Bilateral pneumothoraces Severe COPD exacerbation Pulmonary HTN Severe systolic and diastolic CHF with EF 12% CHF exacerbation Atrial Flutter H/o alcoholism Hepatitis C Transaminitis Consultants: Cardiology - Dr. Jeremy Smith. Pulm/CC - Dr. Jairon Champion. Gen Surg - Dr. Sean Chandler. Hospital Course: The patient is a 68-year-old male with history of COPD and CHF who returned to the hospital today with increasing shortness of breath, fatigue, and racing heart. He left the hospital AMA yesterday shortly after he had presented with similar symptoms and had been cardioverted for atrial flutter in the ED. Today , he was found to be in atrial flutter again with a heart rate of 170. Over the last month, the patient had developed a productive cough which had progressively worsened. He had also developed edema which had slowly been worsening. In the outpatient setting, he was put on a steroid taper for COPD exacerbation and his Lasix was increased. Patient was admitted to the ICU, where he had a cardiac arrest and was resuscitated. He suffered 2 pneumothoraces from CPR. He was provided with maximal medical support with ventilator support and pressors. He subsequently had another cardiac arrest and resuscitation efforts were unsuccessful. Condition: . Pertinent tests/labs/imaging: Final Chest XR: 1. Enlarging moderate right pneumothorax. 2. Small bore left chest tube without left pneumothorax. 3. Endotracheal tube above the roni. 4. Left subclavian line in the superior vena cava.
--- NOTE | 2018-11-20 06:29 | GOP ---
DATE OF OPERATION: 11/19/2018 SURGEON: Sean Chandler MD PREOPERATIVE DIAGNOSIS: 1. Left pneumothorax, status post code. 2. Inadequate venous access for pressor agents. POSTOPERATIVE DIAGNOSIS: 1. Left pneumothorax, status post code. 2. Inadequate venous access for pressor agents. PROCEDURE PERFORMED: 1. Placement of a pneumothorax tube, left chest. 2. Placement of left subclavian triple-lumen central line. FINDINGS: 1. Left pneumothorax, status post code. 2. Inadequate venous access for pressor agents. INDICATIONS: 1. Left pneumothorax, status post code. 2. Inadequate venous access for pressor agents. DESCRIPTION OF PROCEDURE: The patient has undergone a code and is not responsive at this time. He i s intubated. Chest x-rays reviewed with nursing staff and everyone agrees the left chest needs to be approached. The left chest was carefully prepped and draped. A pneumothorax tube was carefully ins erted after local anesthetic was been administered over the superior border of the left 2nd rib. Tub e was carefully advanced. It was connected to the Heimlich valve after it has been sewn in position. This was connected to a Pleur-evac. Condensation was seen in the tube. The line was sutured in position. A Tegaderms were applied. Upright chest x-ray was obtained which shows complete resolution of the left pneumothorax. The patient is now positioned in Trendelenburg position. A sterile draping and gowning is used. The left subclavian approach is used. The subclavian vein is accessed on the 1st pass. Guidewire was p assed centrally. The thin-walled needle is removed. The skin was incised. A dilator was passed ove r the guidewire. The dilator was removed. The triple-lumen catheter which has had 2 lumens (blue an d white) flushed and has Hep-Lock catheters placed was now advanced over the guidewire. The guidewir e was removed. Hep-Lock catheter was placed on the brown hub, which was now flushed as well. The tr iple-lumen was sutured at the skin and at the hub of the chest wall. A Biopatch was placed. Tegader m was positioned. A chest x-ray shows it to be in good position. /[id number]/MODL
--- NOTE | 2018-11-20 07:44 | CPEKG ---
Test Reason : OPEN Blood Pressure : / mmHG Vent. Rate : 176 BPM Atrial Rate : 176 BPM P-R Int : 000 ms QRS Dur : 148 ms QT Int : 327 ms P-R-T Axes : 000 -75 -83 degrees QTc Int : 560 ms Atrial flutter Confirmed by Bartolome Larose ([id number]) on 11/20/2018 7:44:08 AM Referred By: Confirmed By:Bartolome Larose
--- NOTE | 2018-11-20 11:39 | ECHO ---
[email or web address] [address] [address] Main: [phone] Fax: Transthoracic Echocardiogram Name: LEONARDO RIVERA MR#: [id number] Study Date: 11/19/2018 Study Time: 06:43 PM Date of : 1950 Age: 68 year(s) Height: 182.9 cm (72 in.) Weight: 86.18 kg (190 lb.) BSA: 2.08 m2 Gender: Male Examination: Limited Echo Indication: Code Blue Image Quality: Contrast: Requested by: Jairon Champion BP: / Heart Rate: Rhythm: Indication: Code Blue Procedure Staff Garage Manager: Chinyere Kebede [facility] Reading Physician: Zoraida Coreas MD Requesting Provider: Conclusions: Limited echo during code. Severely dilated left ventricle with ejection fraction less than 10%. Severe global hypokinesis. No pericardial effusion. Measurements: Chambers Valvular Assessment AV/MV Valvular Assessment TV/PV Normal Normal Normal Name Value Range Name Value Range Name Value Range Visual EF: 10 % Continued Measurements: Findings: Left Ventricle: Dilated left ventricle. Severely reduced systolic LV function. The ejection fraction is visually estimated to be 10 %. Pericardium: No pericardial effusion. Exam Comments: (No Signature Object) Patient: LEONARDO RIVERA Study Date: 11/19/2018 Page 1 of 1 06:43 PM [id number]
--- NOTE | 2018-11-20 12:50 | PDMN ---
Medical Necessity Medical necessity: Pt meets INPT criteria per MD and MCG Systemic or Infectious Condition GRG (acute hypoxemic respiratory failure, COPD, pulmonary htn, aflutter, CHF).
--- NOTE | 2018-11-21 13:01 | ASMTCMCOM ---
CM Note CM Note Notes: FED registration desk requested assistance regarding notification. Friend of the pt, Evaristo presented in [facility] to inquire regarding pt. status. This SW spoke to Evaristo in the family room to notify of pt.'s . Evaristo indicated that the pt has been sick for some time and that he believed it was his time. Evaristo stated that pt was very good friends with a woman named Mazin Angelo and indicated that Mazin would be the person to provide information about the pt.s daughter. Evaristo reported that the pt. had a good relationship with is daughter and she is in "[place] or [place]" right now. He also warned that Mazin drinks a lot and would be intoxicated (by 10:30 AM) and that she would "make the situation about her". Evaristo did not have her number with him but gave his number ([phone]) and stated that he could provide it. Information was provided to Abraham Brower who will continue to follow. Date Signed: 11/21/2018 01:00 PM Electronically Signed By:Tana Esquivel LCSW
== END 2018-11-19 22:35 | disposition expired | DRG 208 ==
LOC: EDUNIT# → F2N 15:55
PROVIDERS: ADMIT Internal Medicine; ATTEND Internal Medicine
DX: J44.1 Chronic obstructive pulmonary disease with (acute) exacerbation (principal); J96.01 Acute respiratory failure with hypoxia; I50.41 Acute combined systolic (congestive) and diastolic (congestive) heart failure; I48.92 Unspecified atrial flutter; G93.1 Anoxic brain damage, not elsewhere classified; J93.9 Pneumothorax, unspecified; I42.0 Dilated cardiomyopathy; I46.9 Cardiac arrest, cause unspecified; I27.20 Pulmonary hypertension, unspecified; I50.810 Right heart failure, unspecified; F10.21 Alcohol dependence, in remission; F12.90 Cannabis use, unspecified, uncomplicated; B19.20 Unspecified viral hepatitis C without hepatic coma; F41.9 Anxiety disorder, unspecified; I48.91 Unspecified atrial fibrillation; Z79.52 Long term (current) use of systemic steroids; Z91.19 Patient's noncompliance with other medical treatment and regimen
CPT/HCPCS: 80307; 84484-ER; 96374; G0480; J0171; J0282; J0456; J1940; J2060; J2270; J2930